=== PATIENT | female | born 1955 | race American Indian/Alaskan Native ===

== ENCOUNTER 2017-04-24 13:49 | Outpatient (CLI) | payer OTHER ==
--- NOTE | 2017-04-25 09:30 | Vascular Lab Report ---
LOWER EXTREMITY VENOUS DUPLEX: REASON FOR EXAM: Edema of the lower extremities. COMMENTS ON THE RIGHT: All veins visualized are freely compressible without evidence of internal echogenicity. Flow is spontaneous and phasic throughout. COMMENTS ON THE LEFT: All veins visualized are freely compressible without evidence of internal echogenicity. Flow is spontaneous and phasic throughout. IMPRESSION: No evidence of acute or chronic deep venous thrombosis in either lower extremity.
== END 2017-04-24 13:50 | disposition home or self-care (01) ==
LOC: VAS 13:49
PROVIDERS: ATTEND Podiatrist Foot Surgery
DX: R60.0 Localized edema (principal)
CPT/HCPCS: 93970

== ENCOUNTER 2017-04-24 15:06 | Emergency (ER) | payer OTHER ==
--- NOTE | 2017-04-24 15:12 | Emergency Department Report ---
Stated Complaint: COUGH/CP/SOB Time Seen by Provider: 04/24/17 15:08 - HPI History of Present Illness: PT states she has a bad "chest cold" PT states she has been coughing for a week. PT states her chest "feels really hallow" - ROS Review of Systems: - f/v -n/c + swelling to reagan ankles - Exam Physical Exam: PT ambulatory with steady gait no acute resp distress MSE screening note: Focused history and physical exam performed. Due to findings the following was ordered: xr, ekg, labs ED Disposition for MSE Condition: Stable
--- NOTE | 2017-04-24 15:54 | XRay Report ---
Chest 2 views: History: Dyspnea. Findings: Normal cardiomediastinal silhouette. Trachea is midline. No consolidation, pneumothorax or pleural effusion. Impression: No acute cardiopulmonary findings.
[2017-04-24 15:59] LABS: Basophils % (Auto) 0.3 % (0.0-1.8); Eosinophils % (Auto) 1.4 % (0.0-4.3); Hematocrit 39.8 % (30.3-42.9); Hemoglobin 13.4 gm/dl (10.1-14.3); Mean Corpuscular HGB Conc 34 % (30-34); Mean Corpuscular Hemoglobin 30 pg (28-32); Mean Corpuscular Volume 89 fl (79-97); Platelet Count 172 K/mm3 (140-440); Red Blood Count 4.45 M/mm3 (3.65-5.03); Red Cell Distribution Width 13.6 % (13.2-15.2); White Blood Count 5.7 K/mm3 (4.5-11.0)
[2017-04-24 16:08] LABS: INR 0.92 (0.87-1.13)
[2017-04-24 16:09] LABS: Partial Thromboplastin Time 24.7 Sec. (24.2-36.6)
[2017-04-24 16:20] LABS: Alanine Aminotransferase 24 units/L (7-56); Albumin 3.7 g/dL (3.9-5); Alkaline Phosphatase 125 units/L (35-129); Anion Gap 17 mmol/L; BUN/Creatinine Ratio 18; Blood Urea Nitrogen 14 mg/dL (7-17); Carbon Dioxide 27 mmol/L (22-30); Chloride 94.1 mmol/L (98-107); Glucose 345 mg/dL (65-100); Potassium 4.4 mmol/L (3.6-5.0); Sodium 134 mmol/L (137-145); Total Protein 7.5 g/dL (6.3-8.2)
--- NOTE | 2017-04-24 21:08 | Emergency Department Report ---
- General Chief Complaint: Chest Pain Stated Complaint: COUGH/CP/SOB Time Seen by Provider: 04/24/17 15:08 Source: patient Mode of arrival: Ambulatory Limitations: No Limitations - History of Present Illness Initial Comments: Patient is a 61-year-old female who presents due to cough times one week. Patient states that she has started having chest pain when coughing. Patient also states that she has sore throat and nasal congestion. Patient denies any SOB during history taking. 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 MD Complaint: cough, sore throat Onset/Timin -: week(s) Severity scale (0 -10): 0 Consistency: intermittent Improves With: nothing Worsens With: other (coughing) Associated Symptoms: denies other symptoms Treatments Prior to Arrival: "cold medicine" - Related Data Home Medications Medication Instructions Recorded Confirmed Last Taken Amitriptyline HCl [Amitriptyline 75 mg PO HS 07/21/13 03/03/15 03/02/15 HCl] Metformin HCl [Metformin HCl ER] 500 mg PO DAILY 07/21/13 03/03/15 03/03/15 Tramadol HCl [Tramadol HCl] 50 mg PO DAILY 07/21/13 03/03/15 03/03/15 Zolpidem [Ambien] 5 mg PO HS 07/21/13 03/03/15 03/03/15 Previous Rx's Medication Instructions Recorded Last Taken Type HYDROcodone/APAP 10-325 [[place] 1 each PO Q6HR PRN #30 tablet 03/04/15 Unknown Rx 10/325] Hyoscyamine Subl [Levsin Sl 0.125 0.125 mg SL Q6HR PRN #20 tab 03/04/15 Unknown Rx TAB] Metoclopramide [Reglan TAB] 10 mg PO TID PRN #20 tab 03/04/15 Unknown Rx oxyCODONE /ACETAMINOPHEN [Percocet 1 tab PO Q6HR PRN #20 tablet 04/16/15 Unknown Rx 5/325] Azithromycin [Zithromax Z-ASHLY] 250 mg PO DAILY #6 tab 04/24/17 Unknown Rx Allergies Allergy/AdvReac Type Severity Reaction Status Date / Time No Known Allergies Allergy Verified 07/21/13 10:40 ED Review of Systems ROS: Stated complaint: COUGH/CP/SOB Other details as noted in HPI Comment: All other systems reviewed and negative Constitutional: no symptoms reported. denies: chills, diaphoresis, fever, malaise, weakness Respiratory: cough. denies: orthopnea, shortness of breath, SOB with exertion, SOB at rest, stridor, wheezing Cardiovascular: chest pain (when coughing). denies: palpitations, dyspnea on exertion, orthopnea, edema Skin: denies: rash Neurological: denies: headache ED Past Medical Hx - Past Medical History Previous Medical History?: Yes Hx Hypertension: Yes Hx Diabetes: Yes Hx Arthritis: Yes - Surgical History Past Surgical History?: Yes Hx Cholecystectomy: Yes Additional Surgical History: HYSTERECTOMY,LAP BAND. Left knee TKR - Social History Smoking Status: Never Smoker Substance Use Type: Alcohol - Medications Home Medications: Home Medications Medication Instructions Recorded Confirmed Last Taken Type Amitriptyline HCl [Amitriptyline 75 mg PO HS 07/21/13 03/03/15 03/02/15 History HCl] Metformin HCl [Metformin HCl ER] 500 mg PO DAILY 07/21/13 03/03/15 03/03/15 History Tramadol HCl [Tramadol HCl] 50 mg PO DAILY 07/21/13 03/03/15 03/03/15 History Zolpidem [Ambien] 5 mg PO HS 07/21/13 03/03/15 03/03/15 History HYDROcodone/APAP 10-325 [[place] 1 each PO Q6HR PRN #30 tablet 03/04/15 Unknown Rx 10/325] Hyoscyamine Subl [Levsin Sl 0.125 0.125 mg SL Q6HR PRN #20 tab 03/04/15 Unknown Rx TAB] Metoclopramide [Reglan TAB] 10 mg PO TID PRN #20 tab 03/04/15 Unknown Rx oxyCODONE /ACETAMINOPHEN [Percocet 1 tab PO Q6HR PRN #20 tablet 04/16/15 Unknown Rx 5/325] Azithromycin [Zithromax Z-ASHLY] 250 mg PO DAILY #6 tab 04/24/17 Unknown Rx ED Physical Exam - General Limitations: No Limitations General appearance: alert, in no apparent distress - Head Head exam: Present: atraumatic - Eye Eye exam: Present: normal appearance, PERRL, EOMI - ENT ENT exam: Present: normal exam, normal orophraynx, mucous membranes moist - Neck Neck exam: Present: normal inspection, full ROM. Absent: tenderness, meningismus, lymphadenopathy - Respiratory Respiratory exam: Present: normal lung sounds bilaterally. Absent: respiratory distress, wheezes, rales, rhonchi, stridor, chest wall tenderness, accessory muscle use, decreased breath sounds, prolonged expiratory - Cardiovascular Cardiovascular Exam: Present: regular rate, normal rhythm, normal heart sounds - Extremities Exam Extremities exam: Present: normal inspection, full ROM. Absent: tenderness - Neurological Exam Neurological exam: Present: alert, oriented X3, normal gait - Psychiatric Psychiatric exam: Present: normal affect, normal mood - Skin Skin exam: Present: warm, dry, intact ED Course Vital Signs 04/24/17 15:12 Temperature 98.5 F Pulse Rate 96 H Respiratory 16 Rate Blood Pressure 115/70 O2 Sat by Pulse 95 Oximetry ED Medical Decision Making - Lab Data Result diagrams: 04/24/17 15:41 04/24/17 15:41 Lab Results 04/24/17 04/24/17 04/24/17 Range/Units 15:41 15:41 15:41 WBC 5.7 (4.5-11.0) K/mm3 RBC 4.45 (3.65-5.03) M/mm3 Hgb 13.4 (10.1-14.3) gm/dl Hct 39.8 (30.3-42.9) % MCV 89 (79-97) fl MCH 30 (28-32) pg MCHC 34 (30-34) % RDW 13.6 (13.2-15.2) % Plt Count 172 (140-440) K/mm3 Lymph % (Auto) 37.8 H (13.4-35.0) % [place] % (Auto) 7.4 H (0.0-7.3) % Eos % (Auto) 1.4 (0.0-4.3) % Baso % (Auto) 0.3 (0.0-1.8) % Lymph # 2.1 (1.2-5.4) K/mm3 [place] # 0.4 (0.0-0.8) K/mm3 Eos # 0.1 (0.0-0.4) K/mm3 Baso # 0.0 (0.0-0.1) K/mm3 Seg Neutrophils % 53.1 (40.0-70.0) % Seg Neutrophils # 3.0 (1.8-7.7) K/mm3 PT 12.8 (12.2-14.9) Sec. INR 0.92 (0.87-1.13) APTT 24.7 (24.2-36.6) Sec. Sodium 134 L (137-145) mmol/L Potassium 4.4 (3.6-5.0) mmol/L Chloride 94.1 L (98-107) mmol/L Carbon Dioxide 27 (22-30) mmol/L Anion Gap 17 mmol/L BUN 14 (7-17) mg/dL Creatinine 0.8 (0.7-1.2) mg/dL Estimated GFR > 60 ml/min BUN/Creatinine Ratio 18 % Glucose 345 H (65-100) mg/dL Calcium 9.0 (8.4-10.2) mg/dL Total Bilirubin 0.30 (0.1-1.2) mg/dL AST 16 (5-40) units/L ALT 24 (7-56) units/L Alkaline Phosphatase 125 (35-129) units/L Troponin T < 0.010 (0.00-0.029) ng/mL NT-Pro-B Natriuret Pep 40.40 (0-900) pg/mL Total Protein 7.5 (6.3-8.2) g/dL Albumin 3.7 L (3.9-5) g/dL Albumin/Globulin Ratio 1.0 % - Radiology Data Radiology results: image reviewed Chest x-ray shows no infiltrates or consolidation - Medical Decision Making Patient was in no acute distress, he should not clear bilateral lung sounds with good air exchange. Patient was low risk for PE based on Well's criteria. Patient had no SOB on the ER, she had normal speech with no SOB. EKG:NSR, HR 83 chest x-ray shows no infiltrate or consolidation patient was discharged with a prescription for azithromycin and was told to follow up with her PCP. oxygen saturation was 100% RA, HR 84 prior to discharge. - Differential Diagnosis bronchitis, URI, pneumonia Critical care attestation.: If time is entered above; I have spent that time in minutes in the direct care of this critically ill patient, excluding procedure time. ED Disposition Clinical Impression: Bronchitis URI (upper respiratory infection) Qualifiers: URI type: unspecified URI Qualified Code(s): J06.9 - Acute upper respiratory infection, unspecified Disposition: - TO HOME OR SELFCARE Is pt being admited?: No Does the pt Need Aspirin: No Condition: Good Instructions: Acute Bronchitis (ED), Upper Respiratory Infection (ED) Additional Instructions: Take azithromycin as prescribed. Follow up with your Primary care provider or at [facility]. Prescriptions: Azithromycin [Zithromax Z-ASHLY] 250 mg PO DAILY #6 tab Referrals: JESS CONDE MD [Primary Care Provider] - 3-5 Days Time of Disposition: 21:08
[2017-04-25 03:59] VITALS: BP 153/92
== END 2017-04-24 21:30 | disposition home or self-care (01) ==
LOC: ED 15:06
DX: J06.9 Acute upper respiratory infection, unspecified (principal); J40 Bronchitis, not specified as acute or chronic; I10 Essential (primary) hypertension; E11.9 Type 2 diabetes mellitus without complications; M19.90 Unspecified osteoarthritis, unspecified site; Z90.49 Acquired absence of other specified parts of digestive tract
CPT/HCPCS: 36415; 71020; 80053; 83880; 84484; 85025; 85610; 85730; 93005; 93010; 99284

== ENCOUNTER 2017-12-04 02:10 | Emergency (ER) | payer OTHER ==
[2017-12-04 03:02] LABS: Basophils % (Auto) 0.4 % (0.0-1.8); Eosinophils # (Auto) 0.1 K/mm3 (0.0-0.4); Eosinophils % (Auto) 2.2 % (0.0-4.3); Hematocrit 39.3 % (30.3-42.9); Hemoglobin 13.5 gm/dl (10.1-14.3); Lymphocytes # (Auto) 2.6 K/mm3 (1.2-5.4); Mean Corpuscular HGB Conc 34 % (30-34); Mean Corpuscular Hemoglobin 31 pg (28-32); Mean Corpuscular Volume 90 fl (79-97); Monocytes # (Auto) 0.5 K/mm3 (0.0-0.8); Monocytes % (Auto) 8.2 % (0.0-7.3); Platelet Count 212 K/mm3 (140-440); Red Blood Count 4.38 M/mm3 (3.65-5.03); Red Cell Distribution Width 13.5 % (13.2-15.2)
[2017-12-04 03:17] LABS: Alanine Aminotransferase 19 units/L (7-56); Albumin 3.9 g/dL (3.9-5); BUN/Creatinine Ratio 14; Blood Urea Nitrogen 13 mg/dL (7-17); Calcium 9.3 mg/dL (8.4-10.2); Hemolysis Index 11
[2017-12-04] MEDS ORDERED: DELTASONE PO ONE (12:20)
[2017-12-04] MEDS ORDERED: PEPCID PO ONE (12:20)
--- NOTE | 2017-12-04 12:43 | Emergency Department Report ---
ED Allergic Reaction HPI - General Chief complaint: Allergic Reaction Stated complaint: ALLERGIC REACTION Time Seen by Provider: 12/04/17 11:47 Source: patient Mode of arrival: Ambulatory Limitations: No Limitations - History of Present Illness Initial Comments: Presents with a one-year history of rash sister on her legs, but has spread to her arms and torso. The rash itches and hurts. Patient saw a architectural representative a year ago who had diagnosed her with psoriasis. She was given a cream that helped with the itching, but didn't cause a rash go away. It did not help. The patient developed bilateral neck pain and swelling 2 weeks ago. She saw her family doctor a week ago who gave her steroid injection. He said some of her symptoms could be caused by her lisinopril. Instructed her to keep taking it due to the benefit to her kidneys. The persistent symptoms, patient came to the ER today for reevaluation. Afebrile. No joint pain. Hasn't noticed a rash in her mouth or on her palms or soles. No one at home has a rash. The rash comes and goes. The last time she took the lisinopril was yesterday. No past h/o allergic reactions. Symptoms: rash, itching Treatment Prior to Arrival: none - Related Data Home Medications Medication Instructions Recorded Confirmed Last Taken Amitriptyline HCl 75 mg PO HS 07/21/13 05/17/17 03/02/15 Metformin HCl [metFORMIN ER] 500 mg PO DAILY 07/21/13 05/17/17 03/03/15 Tramadol HCl 50 mg PO DAILY 07/21/13 05/17/17 03/03/15 Zolpidem [Ambien] 5 mg PO HS 07/21/13 05/17/17 03/03/15 Previous Rx's Medication Instructions Recorded Last Taken Type HYDROcodone/APAP 10-325 [[place] 1 each PO Q6HR PRN #30 tablet 03/04/15 Unknown Rx 10-325 mg TAB] Hyoscyamine Subl [Levsin Sl 0.125 0.125 mg SL Q6HR PRN #20 tab 03/04/15 Unknown Rx TAB] Metoclopramide [Reglan TAB] 10 mg PO TID PRN #20 tab 03/04/15 Unknown Rx oxyCODONE /ACETAMINOPHEN [Percocet 1 tab PO Q6HR PRN #20 tablet 04/16/15 Unknown Rx 5/325 mg] Azithromycin [Zithromax Z-ASHLY] 250 mg PO DAILY #6 tab 04/24/17 Unknown Rx Pantoprazole [Protonix] 40 mg PO QDAY #30 tablet 05/18/17 Unknown Rx oxyCODONE /ACETAMINOPHEN [Percocet 1 tab PO Q4H PRN #14 tablet 05/18/17 Unknown Rx 5/325 mg] Diclofenac Sodium [Voltaren] 100 gm TP Q4HR PRN #100 gel..gram. 12/04/17 Unknown Rx amLODIPine [Norvasc] 10 mg PO DAILY #30 tab 12/04/17 Unknown Rx predniSONE [Deltasone] 50 mg PO QDAY #5 tab 12/04/17 Unknown Rx Allergies Allergy/AdvReac Type Severity Reaction Status Date / Time No Known Allergies Allergy Verified 12/04/17 02:45 ED Review of Systems ROS: Stated complaint: ALLERGIC REACTION Other details as noted in HPI Constitutional: denies: chills, fever Eyes: denies: eye pain, eye discharge, vision change ENT: denies: ear pain, throat pain Respiratory: denies: cough, shortness of breath, wheezing Cardiovascular: denies: chest pain, palpitations Endocrine: no symptoms reported Gastrointestinal: denies: abdominal pain, nausea, diarrhea Genitourinary: denies: urgency, dysuria, discharge Musculoskeletal: myalgia, other (bilateral posterior neck pain). denies: back pain, joint swelling, arthralgia Skin: rash, pruritus. denies: lesions Neurological: denies: headache, weakness, paresthesias Psychiatric: denies: anxiety, depression Hematological/Lymphatic: denies: easy bleeding, easy bruising ED Past Medical Hx - Past Medical History Hx Hypertension: Yes Hx Diabetes: Yes Hx Arthritis: Yes - Surgical History Hx Cholecystectomy: Yes Additional Surgical History: HYSTERECTOMY,LAP BAND. Left knee TKR - Social History Smoking Status: Never Smoker Substance Use Type: None - Medications Home Medications: Home Medications Medication Instructions Recorded Confirmed Last Taken Type Amitriptyline HCl 75 mg PO HS 07/21/13 05/17/17 03/02/15 History Metformin HCl [metFORMIN ER] 500 mg PO DAILY 07/21/13 05/17/17 03/03/15 History Tramadol HCl 50 mg PO DAILY 07/21/13 05/17/17 03/03/15 History Zolpidem [Ambien] 5 mg PO HS 07/21/13 05/17/17 03/03/15 History HYDROcodone/APAP 10-325 [[place] 1 each PO Q6HR PRN #30 tablet 03/04/15 05/17/17 Unknown Rx 10-325 mg TAB] Hyoscyamine Subl [Levsin Sl 0.125 0.125 mg SL Q6HR PRN #20 tab 03/04/15 Unknown Rx TAB] Metoclopramide [Reglan TAB] 10 mg PO TID PRN #20 tab 03/04/15 05/17/17 Unknown Rx oxyCODONE /ACETAMINOPHEN [Percocet 1 tab PO Q6HR PRN #20 tablet 04/16/15 Unknown Rx 5/325 mg] Azithromycin [Zithromax Z-ASHLY] 250 mg PO DAILY #6 tab 04/24/17 05/17/17 Unknown Rx Pantoprazole [Protonix] 40 mg PO QDAY #30 tablet 05/18/17 Unknown Rx oxyCODONE /ACETAMINOPHEN [Percocet 1 tab PO Q4H PRN #14 tablet 05/18/17 Unknown Rx 5/325 mg] Diclofenac Sodium [Voltaren] 100 gm TP Q4HR PRN #100 gel..gram. 12/04/17 Unknown Rx amLODIPine [Norvasc] 10 mg PO DAILY #30 tab 12/04/17 Unknown Rx predniSONE [Deltasone] 50 mg PO QDAY #5 tab 12/04/17 Unknown Rx ED Physical Exam - General Limitations: No Limitations General appearance: alert, in no apparent distress - Head Head exam: Present: atraumatic, normocephalic - Eye Eye exam: Present: normal appearance - ENT ENT exam: Present: normal orophraynx, mucous membranes moist - Neck Neck exam: Present: normal inspection, tenderness (bilateral trapezius TTP), full ROM - Respiratory Respiratory exam: Present: normal lung sounds bilaterally. Absent: respiratory distress - Cardiovascular Cardiovascular Exam: Present: regular rate, normal rhythm. Absent: systolic murmur, diastolic murmur, rubs, gallop - GI/Abdominal GI/Abdominal exam: Present: soft, normal bowel sounds - Extremities Exam Extremities exam: Present: normal inspection - Back Exam Back exam: Present: normal inspection - Neurological Exam Neurological exam: Present: alert, oriented X3 - Psychiatric Psychiatric exam: Present: normal affect, normal mood - Skin Skin exam: Present: warm, dry, intact, normal color, rash (blanching erythematous polymorphic papular rash with desquamation on her legs, arms, torso. Excoriations noted), erythema ED Course Vital Signs 12/04/17 12/04/17 02:13 02:35 Temperature 98.5 F 98.5 F Pulse Rate 91 H 91 H Respiratory 18 Rate Blood Pressure 168/86 168/86 O2 Sat by Pulse 96 96 Oximetry ED Medical Decision Making - Lab Data Result diagrams: 12/04/17 02:49 12/04/17 02:49 - Medical Decision Making 62-year-old female past medical history of diabetes, high blood pressure presents to the ER with acute on chronic rash. Vital stable. Patient well- appearing. Oropharynx unremarkable. Rashes concerning for drug reaction versus psoriasis versus contact dermatitis. No evidence of superinfection at this point in time. No suspicion for SJS or TEN. Patient believes that the presentation is related to her lisinopril. The patient will be instructed to stop taking her lisinopril. She'll be placed on a daily Zyrtec and prednisone taper for management of her symptoms. I informed the patient that she should follow back up with her architectural representative and her family physician for reevaluation. I have low suspicion for acute angioedema given no oropharyngeal involvement, patient in no respiratory stress, patient is asking to eat at this point in time, timeline of symptoms. Patient states that she does have bilateral neck pain. However, she states that she has neck problems at baseline. No focal neuro deficit in upper extremities. I believe the presentation likely related to her chronic neck pathology. Patient will be given Voltaren gel until to follow-up with her family doctor for further management of the issue. Labwork significant for glucose of 240. Patient has history of diabetes. Will have her follow-up with her family doctor for hyperglycemia. - Differential Diagnosis psoriasis, TEN, SJS, contact dermatitis, drug rash Critical care attestation.: If time is entered above; I have spent that time in minutes in the direct care of this critically ill patient, excluding procedure time. ED Disposition Clinical Impression: Contact dermatitis, Hyperglycemia due to type 2 diabetes mellitus, Neck pain, bilateral Disposition: - TO HOME OR SELFCARE Is pt being admited?: No Condition: Stable Instructions: Diabetes Mellitus Type 2 in Adults (ED), Contact Dermatitis (ED) Additional Instructions: Please stop taking your lisinopril. Start the amlodipine in place of the lisinopril. Follow up with your architectural representative and family doctor next week. Start taking a daily zyrtec until your rash gets better. If you develop difficulty breathing, please return to the ER for re-evaluation. Prescriptions: amLODIPine [Norvasc] 10 mg PO DAILY #30 tab Diclofenac Sodium [Voltaren] 100 gm TP Q4HR PRN #100 gel..gram. PRN Reason: Pain predniSONE [Deltasone] 50 mg PO QDAY #5 tab Referrals: RONNY KITCHEN MD [Primary Care Provider] - 3-5 Days
[2017-12-04 13:52] LABS: Color,Urine Yellow (Yellow)
[2017-12-04 13:53] LABS: Bilirubin,Urine NEG (Negative); Blood,Urine NEG (Negative); Protein,Urine <15 mg/dL mg/dL (Negative); Urobilinogen,Urine < 2.0 mg/dL (<2.0)
[2017-12-04 14:10] VITALS: BP 143/84
== END 2017-12-04 14:16 | disposition home or self-care (01) ==
LOC: ED 02:10
DX: L23.9 Allergic contact dermatitis, unspecified cause (principal); E11.65 Type 2 diabetes mellitus with hyperglycemia; M54.2 Cervicalgia; I10 Essential (primary) hypertension; Z90.710 Acquired absence of both cervix and uterus; Z90.49 Acquired absence of other specified parts of digestive tract; Z96.652 Presence of left artificial knee joint
CPT/HCPCS: 36415; 80053; 81001; 82962; 85025; 99283; J7512

== ENCOUNTER 2018-01-28 13:12 | Emergency (ER) | payer OTHER ==
[2018-01-28] MEDS ORDERED: NACL 0.9% 500 ML 500 ML IV ONE ×2 (14:35→17:49)
[2018-01-28] MEDS ORDERED: TYLENOL PO ONE (14:35)
[2018-01-28] MEDS ORDERED: TORADOL IV ONE (14:35)
[2018-01-28] MEDS ORDERED: NACL 0.9% 1000 ML 1,000 ML IV ONE (14:35)
[2018-01-28 15:07] LABS: Basophils % (Auto) 0.2 % (0.0-1.8); Eosinophils % (Auto) 0.1 % (0.0-4.3); Hematocrit 39.7 % (30.3-42.9); Hemoglobin 12.7 gm/dl (10.1-14.3); Lymphocytes # (Auto) 1.1 K/mm3 (1.2-5.4); Lymphocytes % (Auto) 13.7 % (13.4-35.0); Mean Corpuscular HGB Conc 32 % (30-34); Mean Corpuscular Hemoglobin 29 pg (28-32); Mean Corpuscular Volume 92 fl (79-97); Monocytes # (Auto) 0.5 K/mm3 (0.0-0.8); Monocytes % (Auto) 6.2 % (0.0-7.3); Platelet Count 213 K/mm3 (140-440); Red Blood Count 4.34 M/mm3 (3.65-5.03); Red Cell Distribution Width 13.5 % (13.2-15.2)
--- NOTE | 2018-01-28 15:18 | Emergency Department Report ---
ED Abdominal Pain HPI - General Chief Complaint: Abdominal Pain Stated Complaint: WEAKNESS, N/V Time Seen by Provider: 01/28/18 14:27 Source: EMS Mode of arrival: Stretcher Limitations: No Limitations - History of Present Illness Initial Comments: 1 day of weakness and lower right abdominal pain ( constant, sharp, associated with N/V). No diarrhea. Got back yesterday from a cruise to [place]. No one else that she knows of has been sick. Afebrile. Pt ran out of her BP meds 2 weeks ago. Severity scale (0 -10): 6 - Related Data Home Medications Medication Instructions Recorded Confirmed Last Taken Amitriptyline HCl 75 mg PO HS 07/21/13 05/17/17 03/02/15 Metformin HCl [metFORMIN ER] 500 mg PO DAILY 07/21/13 05/17/17 03/03/15 Tramadol HCl 50 mg PO DAILY 07/21/13 05/17/17 03/03/15 Zolpidem [Ambien] 5 mg PO HS 07/21/13 05/17/17 03/03/15 Previous Rx's Medication Instructions Recorded Last Taken Type HYDROcodone/APAP 10-325 [[place] 1 each PO Q6HR PRN #30 tablet 03/04/15 Unknown Rx 10-325 mg TAB] Hyoscyamine Subl [Levsin Sl 0.125 0.125 mg SL Q6HR PRN #20 tab 03/04/15 Unknown Rx TAB] Metoclopramide [Reglan TAB] 10 mg PO TID PRN #20 tab 03/04/15 Unknown Rx oxyCODONE /ACETAMINOPHEN [Percocet 1 tab PO Q6HR PRN #20 tablet 04/16/15 Unknown Rx 5/325 mg] Azithromycin [Zithromax Z-ASHLY] 250 mg PO DAILY #6 tab 04/24/17 Unknown Rx Pantoprazole [Protonix] 40 mg PO QDAY #30 tablet 05/18/17 Unknown Rx oxyCODONE /ACETAMINOPHEN [Percocet 1 tab PO Q4H PRN #14 tablet 05/18/17 Unknown Rx 5/325 mg] Diclofenac Sodium [Voltaren] 100 gm TP Q4HR PRN #100 gel..gram. 12/04/17 Unknown Rx amLODIPine [Norvasc] 10 mg PO DAILY #30 tab 05/22/18 Unknown Rx predniSONE [Deltasone] 50 mg PO QDAY #5 tab 12/04/17 Unknown Rx Ondansetron [Zofran TAB] 4 mg PO Q8HR PRN #10 tablet 01/28/18 Unknown Rx Allergies Allergy/AdvReac Type Severity Reaction Status Date / Time No Known Allergies Allergy Verified 01/28/18 13:33 ED Review of Systems ROS: Stated complaint: WEAKNESS, N/V Other details as noted in HPI ED Past Medical Hx - Past Medical History Previous Medical History?: Yes Hx Hypertension: Yes Hx Diabetes: Yes Hx Arthritis: Yes - Surgical History Past Surgical History?: Yes Hx Cholecystectomy: Yes Additional Surgical History: HYSTERECTOMY,LAP BAND. Left knee TKR - Social History Smoking Status: Never Smoker Substance Use Type: None - Medications Home Medications: Home Medications Medication Instructions Recorded Confirmed Last Taken Type Amitriptyline HCl 75 mg PO HS 07/21/13 05/17/17 03/02/15 History Metformin HCl [metFORMIN ER] 500 mg PO DAILY 07/21/13 05/17/17 03/03/15 History Tramadol HCl 50 mg PO DAILY 07/21/13 05/17/17 03/03/15 History Zolpidem [Ambien] 5 mg PO HS 07/21/13 05/17/17 03/03/15 History HYDROcodone/APAP 10-325 [[place] 1 each PO Q6HR PRN #30 tablet 03/04/15 05/17/17 Unknown Rx 10-325 mg TAB] Hyoscyamine Subl [Levsin Sl 0.125 0.125 mg SL Q6HR PRN #20 tab 03/04/15 Unknown Rx TAB] Metoclopramide [Reglan TAB] 10 mg PO TID PRN #20 tab 03/04/15 05/17/17 Unknown Rx oxyCODONE /ACETAMINOPHEN [Percocet 1 tab PO Q6HR PRN #20 tablet 04/16/15 Unknown Rx 5/325 mg] Azithromycin [Zithromax Z-ASHLY] 250 mg PO DAILY #6 tab 04/24/17 05/17/17 Unknown Rx Pantoprazole [Protonix] 40 mg PO QDAY #30 tablet 05/18/17 Unknown Rx oxyCODONE /ACETAMINOPHEN [Percocet 1 tab PO Q4H PRN #14 tablet 05/18/17 Unknown Rx 5/325 mg] Diclofenac Sodium [Voltaren] 100 gm TP Q4HR PRN #100 gel..gram. 12/04/17 Unknown Rx amLODIPine [Norvasc] 10 mg PO DAILY #30 tab 12/04/17 Unknown Rx predniSONE [Deltasone] 50 mg PO QDAY #5 tab 12/04/17 Unknown Rx Ondansetron [Zofran TAB] 4 mg PO Q8HR PRN #10 tablet 01/28/18 Unknown Rx ED Physical Exam - General Limitations: No Limitations ED Course Vital Signs 01/28/18 01/28/18 01/28/18 13:20 14:25 14:30 Temperature 98.1 F Pulse Rate 82 84 79 Respiratory 16 14 13 Rate Blood Pressure 120/70 132/72 O2 Sat by Pulse 95 94 Oximetry 01/28/18 01/28/18 01/28/18 14:58 14:59 15:00 Temperature Pulse Rate 78 Respiratory 16 16 14 Rate Blood Pressure 134/80 O2 Sat by Pulse 93 Oximetry 01/28/18 01/28/18 01/28/18 15:30 16:18 16:30 Temperature Pulse Rate 78 84 83 Respiratory 12 13 12 Rate Blood Pressure 134/80 O2 Sat by Pulse 94 91 90 Oximetry 01/28/18 01/28/18 01/28/18 17:00 17:30 18:00 Temperature Pulse Rate 81 85 80 Respiratory 12 17 12 Rate Blood Pressure 134/80 O2 Sat by Pulse 92 93 92 Oximetry 01/28/18 18:30 Temperature Pulse Rate 83 Respiratory 11 L Rate Blood Pressure 154/84 O2 Sat by Pulse 93 Oximetry ED Medical Decision Making - Lab Data Result diagrams: 01/28/18 14:42 01/28/18 14:42 - EKG Data -: EKG Interpreted by Ia EKG shows normal: sinus rhythm, axis, intervals, QRS complexes, ST-T waves Rate: normal - EKG Data Interpretation: no acute changes - Radiology Data Radiology results: report reviewed, image reviewed - Medical Decision Making 62-year-old female with past medical history of hypertension, diabetes that presents to the ER with abdominal pain and weakness. Vital signs are stable. Patient appears clinically dry on exam. Lab work shows evidence of concentrated urine and dehydration. CT scan shows no acute abnormalities. Patient was given 2 L of IV fluids. She felt better on reevaluation. Patient was able to walk without difficulty. Has eaten and drank without problem. We' ll concern for emergent pathology. I will encourage the patient to continue to hydrate herself well at home. She'll follow-up with her family doctor in 2-3 days for reevaluation. - Differential Diagnosis infectious colitis, dehydration, ACS, sepsis, UTI, pyelonephritis, electrol Critical care attestation.: If time is entered above; I have spent that time in minutes in the direct care of this critically ill patient, excluding procedure time. ED Disposition Clinical Impression: Dehydration, Vomiting Disposition: DC-01 TO HOME OR SELFCARE Is pt being admited?: No Does the pt Need Aspirin: No Condition: Stable Instructions: Abdominal Pain (ED), Dehydration (ED) Additional Instructions: Please drink plenty of water at home. If you develop diarrhea in the next 24 hours, this is normal. Follow up with your family doctor in 2-3 days for re- check. Prescriptions: Ondansetron [Zofran TAB] 4 mg PO Q8HR PRN #10 tablet PRN Reason: Nausea Referrals: PRIMARY CARE, [Primary Care Provider] - 3-5 Days
[2018-01-28 15:21] LABS: Alanine Aminotransferase 23 units/L (7-56); Albumin 3.7 g/dL (3.9-5); BUN/Creatinine Ratio 22; Blood Urea Nitrogen 20 mg/dL (7-17); Calcium 9.8 mg/dL (8.4-10.2); Hemolysis Index 11; Lipase 13 units/L (13-60)
--- NOTE | 2018-01-28 16:55 | Cat Scan Report ---
FINAL REPORT EXAM: CT ABDOMEN PELVIS W CON HISTORY: Rt flank abd pain TECHNIQUE: Standard enhanced CT of the abdomen and pelvis. Coronal and sagittal reconstruction was also performed delayed images through the abdomen pelvis were obtained. Contrast: 100 mL Omnipaque 300 given IV. PRIORS: CT a/P 05/17/2017 FINDINGS: Within the abdomen, the liver, spleen, pancreas, adrenal glands, and kidneys are unremarkable. The gallbladder has been surgically removed. No evidence for retroperitoneal or pelvic lymphadenopathy is seen. The bowel loops have normal caliber. No soft tissue mass, fluid collection, inflammatory change, or free air is seen within the abdomen or pelvis. The appendix is normal. Scattered diverticuli are present throughout the distal colon. Within the pelvis, the bladder is overly distended. The uterus has been surgically removed. No evidence for mass or lymphadenopathy is seen in the pelvis. Images through the upper abdomen include the lung bases which demonstrates atelectasis in the left base. Small hiatal hernia is present. Bony structures show no focal abnormalities and demonstrate bilateral facet joint degenerative changes throughout the lower lumbar spine. IMPRESSION: 1. no acute intra-abdominal process noted. 2. diverticulosis. 3. left basilar atelectasis. 4. small hiatal hernia.
[2018-01-28 18:28] LABS: Bacteria,Urine 1+ /HPF (Negative); Bilirubin,Urine NEG (Negative); Blood,Urine NEG (Negative); Color,Urine Yellow (Yellow); Protein,Urine <15 mg/dL mg/dL (Negative)
[2018-01-28 19:11] LABS: Amphetamine Screen,Urine PRESUMPTIVE NEGATIVE; Benzodiazepines Screen,Urine PRESUMPTIVE NEGATIVE; Cocaine Screen,Urine PRESUMPTIVE NEGATIVE; Methadone Screen,Urine PRESUMPTIVE NEGATIVE; Opiate Screen,Urine PRESUMPTIVE NEGATIVE
[2018-01-28 19:24] LABS: Cannabinoid Screen,Urine PRESUMPTIVE POSITIVE
[2018-01-28 20:23] VITALS: BP 149/84
== END 2018-01-28 20:27 | disposition home or self-care (01) ==
LOC: ED 13:12
DX: E86.0 Dehydration (principal); I10 Essential (primary) hypertension; E11.9 Type 2 diabetes mellitus without complications; M19.90 Unspecified osteoarthritis, unspecified site; Z90.49 Acquired absence of other specified parts of digestive tract; Z90.710 Acquired absence of both cervix and uterus; Z96.652 Presence of left artificial knee joint
CPT/HCPCS: 36415; 74177; 80053; 80307; 81001; 82962; 83690; 85025; 93005; 93010; 96361; 96374; 99284; J1885; J7030; J7040; Q9967

== ENCOUNTER 2018-08-23 10:21 | Outpatient (CLI) | payer OTHER ==
--- NOTE | 2018-08-24 19:49 | Magnetic Resonance Report ---
FINAL REPORT EXAM: MR LUMBAR SPINE WO CON HISTORY: PAIN IN RIGHT HIPoutpatient COMPARISON: None available. TECHNIQUE: Several multiplanar noncontrast sequences were obtained. FINDINGS: Note: Exam is limited. Axial and sagittal sequences do not cross reference with each other. Because o f this, this limits accuracy of description of degenerative changes on the axial images this also carmona its evaluation of left versus right foraminal narrowing on the sagittal images. L5-S1 level. Moderate severe bilateral facet changes. Minimal broad-based disc bulge. Central canal r emains patent. [id number] bilateral foraminal narrowing. L4-L5 level, severe facet changes. Hypertrophy lumen flavum. Mild broad-based disc bulge. Moderate ca nal stenosis. Mild to moderate unilateral and moderate severe unilateral foraminal narrowing. L3-L4 level, moderate facet changes and hypertrophy lumen flavum. Mild broad-based disc bulge. Mild c anal stenosis. Mild foraminal narrowing. L2-L3 level, moderate facet changes. Mild bulging of the annulus. Canal and foramina are patent. L1-L2 level, canal and foramina are patent. [id number] bilateral facet changes. Lumbar vertebral body heights are preserved. Mild loss of disc height L4-L5 level. No pathologic chelo ow process. Conus is normal morphology. IMPRESSION: Moderate degenerative changes of the lumbar spine most pronounced at the L4-L5 level. Moderate canal stenosis and [id number] unilateral and moderate severe unilateral foraminal narrowing.
== END 2018-08-23 10:22 | disposition home or self-care (01) ==
LOC: MRI 10:21
PROVIDERS: ATTEND Orthopaedic Surgery
DX: M47.816 Spondylosis without myelopathy or radiculopathy, lumbar region (principal); M48.061 Spinal stenosis, lumbar region without neurogenic claudication; M25.551 Pain in right hip; E11.9 Type 2 diabetes mellitus without complications; I10 Essential (primary) hypertension; M19.90 Unspecified osteoarthritis, unspecified site; Z90.49 Acquired absence of other specified parts of digestive tract; Z90.710 Acquired absence of both cervix and uterus
CPT/HCPCS: 72148

== ENCOUNTER 2020-01-12 13:39 | Outpatient (CLI) | payer OTHER | END 2020-01-12 13:40 | disposition home or self-care (01) | LOC: MAMMO 13:39 | PROVIDERS: ATTEND Nurse Practitioner Family | DX: Z12.31 Encounter for screening mammogram for malignant neoplasm of breast (principal) | CPT/HCPCS: 77067 ==